=== PATIENT | male | born 1945 | race Caucasian/White ===

== ENCOUNTER 2017-02-08 05:21 | Inpatient (IN) | payer OTHER, MEDICARE ==
[~2017-02-08] VITALS: Ht 170.2 cm; Wt 91.5 kg
[~2017-02-08 05:21] MED LIST: CARDIZEM CD360 MG PO; COUMADIN2.5 MG PO; COUMADIN5 MG PO; IRON325 M1 PO; LOSARTAN POTASS50 MG PO; OMEPRAZOLE20 M2 PO; PERCOCET 5/31 TABLET PO; TIAZAC360 MG PO; TYLENOL REGULA325 MG PO; VISTARIL25 MG PO; WARFARIN SODIUM2 MG PO; WARFARIN SODIUM5 MG PO; WARFARIN SODIUM6 MG PO; ZANTAC75 M1 PO
[2017-02-08 05:42] VITALS: BP 130/90
[2017-02-08 06:17] LABS: HEMATOCRIT 44.1 % (38.0-50.0); MCH 31.3 PG (29.0-34.0); MCHC 34.7 G/DL (30.0-36.0); MCV 90.2 FL (86-99); MEAN PLAT.VOLUME 9.9 uM^3 (9.0-12.4); PLATELET COUNT 256 K/uL (156-360); RBC DIS.WIDTH-CV 12.6 % (11.8-14.6); RBC DIS.WIDTH-SD 41.1 % (39-53); RED BLOOD COUNT 4.89 M/uL (4.00-5.50); WHITE BLOOD COUNT 6.5 K/uL (4.1-10.2)
[2017-02-08 06:26] LABS: PTT 25.5 SEC (25-37)
[2017-02-08 06:28] LABS: CHLORIDE 107 mEq/L (99-109); POTASSIUM 4.2 mEq/L (3.7-5.4); SODIUM 142 mEq/L (136-147)
[2017-02-08 06:29] LABS: GLUCOSE 108 mg/dL (70-99)
[2017-02-08 06:30] LABS: INTER. NORMALIZED RATIO 1.2; PROTHROMBIN TIME 13.3 SEC (10.2-12.9)
[2017-02-08 06:31] LABS: ANION GAP 12 MEQ/L (2-14)
[2017-02-08 06:33] LABS: GFR ESTIMATE (CALCULATED) 53 mL/min/
[2017-02-08 06:34] LABS: UREA NITROGEN (BUN) 17 mg/dL (9-23)
[2017-02-08 12:27] VITALS: BP 113/72
[2017-02-08 15:52] VITALS: BP 122/76
[2017-02-08 19:13] VITALS: BP 112/74
[2017-02-08 23:40] VITALS: BP 122/78
[2017-02-09 03:47] VITALS: BP 137/80
[2017-02-09 05:43] LABS: CHLORIDE 104 mEq/L (99-109); POTASSIUM 4.3 mEq/L (3.7-5.4); SODIUM 140 mEq/L (136-147)
[2017-02-09 05:45] LABS: GLUCOSE 116 mg/dL (70-99)
[2017-02-09 05:46] LABS: ANION GAP 9 MEQ/L (2-14)
[2017-02-09 05:48] LABS: GFR ESTIMATE (CALCULATED) > 59 mL/min/
[2017-02-09 05:49] LABS: UREA NITROGEN (BUN) 14 mg/dL (9-23)
[2017-02-09 05:57] LABS: HEMATOCRIT 38.8 % (38.0-50.0); MCH 31.3 PG (29.0-34.0); MCHC 33.2 G/DL (30.0-36.0); MCV 94.2 FL (86-99); MEAN PLAT.VOLUME 10.2 uM^3 (9.0-12.4); PLATELET COUNT 203 K/uL (156-360); RBC DIS.WIDTH-CV 12.8 % (11.8-14.6); RBC DIS.WIDTH-SD 44.5 % (39-53); RED BLOOD COUNT 4.12 M/uL (4.00-5.50); WHITE BLOOD COUNT 8.7 K/uL (4.1-10.2)
[2017-02-09 07:15] VITALS: BP 130/90
[2017-02-09 11:23] LABS: INTER. NORMALIZED RATIO 1.2; PROTHROMBIN TIME 13.8 SEC (10.2-12.9)
[2017-02-09 11:40] VITALS: BP 128/89
[2017-02-09 16:10] VITALS: BP 122/85
[2017-02-09 19:36] VITALS: BP 140/79
[2017-02-09 23:42] VITALS: BP 123/78
[2017-02-10 03:44] VITALS: BP 139/75
[2017-02-10 07:01] LABS: HEMATOCRIT 36.9 % (38.0-50.0); MCH 32.5 PG (29.0-34.0); MCHC 34.1 G/DL (30.0-36.0); MCV 95.1 FL (86-99); MEAN PLAT.VOLUME 10.4 uM^3 (9.0-12.4); PLATELET COUNT 197 K/uL (156-360); RBC DIS.WIDTH-CV 12.9 % (11.8-14.6); RBC DIS.WIDTH-SD 44.6 % (39-53); RED BLOOD COUNT 3.88 M/uL (4.00-5.50); WHITE BLOOD COUNT 7.9 K/uL (4.1-10.2)
[2017-02-10 07:06] LABS: INTER. NORMALIZED RATIO 1.2; PROTHROMBIN TIME 13.6 SEC (10.2-12.9)
[2017-02-10 07:25] VITALS: BP 130/88
[2017-02-10 07:33] LABS: ANION GAP 6 MEQ/L (2-14); CHLORIDE 101 MEQ/L (99-109); GFR ESTIMATE (CALCULATED) > 59 mL/min/; GLUCOSE 110 mg/dL (70-99); MAGNESIUM 1.8 mg/dl (1.3-2.7); POTASSIUM 4.6 MEQ/L (3.7-5.4); SAMPLE HEMOLYSIS CHECK 0; SAMPLE ICTERIC CHECK 0; SAMPLE LIPEMIA CHECK 0; SODIUM 135 MEQ/L (136-147); UREA NITROGEN (BUN) 7 mg/dL (9-23)
[2017-02-10 16:04] VITALS: BP 132/88
[2017-02-10 23:56] VITALS: BP 146/92
[2017-02-11 07:56] LABS: HEMATOCRIT 40.2 % (38.0-50.0); MCH 31.9 PG (29.0-34.0); MCHC 33.8 G/DL (30.0-36.0); MCV 94.1 FL (86-99); MEAN PLAT.VOLUME 10.1 uM^3 (9.0-12.4); PLATELET COUNT 223 K/uL (156-360); RBC DIS.WIDTH-CV 12.7 % (11.8-14.6); RBC DIS.WIDTH-SD 43.8 % (39-53); RED BLOOD COUNT 4.27 M/uL (4.00-5.50); WHITE BLOOD COUNT 7.1 K/uL (4.1-10.2)
[2017-02-11 08:23] LABS: ANION GAP 7 MEQ/L (2-14); CHLORIDE 105 MEQ/L (99-109); GFR ESTIMATE (CALCULATED) > 59 mL/min/; GLUCOSE 117 mg/dL (70-99); POTASSIUM 4.2 MEQ/L (3.7-5.4); SAMPLE HEMOLYSIS CHECK 0; SAMPLE ICTERIC CHECK 0; SAMPLE LIPEMIA CHECK 0; SODIUM 141 MEQ/L (136-147); UREA NITROGEN (BUN) 8 mg/dL (9-23)
[2017-02-11 09:04] VITALS: BP 133/83
[2017-02-11 09:46] LABS: INTER. NORMALIZED RATIO 1.3; PROTHROMBIN TIME 14.7 SEC (10.2-12.9)
[2017-02-11 15:24] VITALS: BP 139/83
[2017-02-11 23:10] VITALS: BP 138/78
[2017-02-12 07:31] LABS: MCHC 32.9 G/DL (30.0-36.0); MCV 94.3 FL (86-99); MEAN PLAT.VOLUME 9.7 uM^3 (9.0-12.4); PLATELET COUNT 239 K/uL (156-360); RBC DIS.WIDTH-CV 12.5 % (11.8-14.6); RBC DIS.WIDTH-SD 43.6 % (39-53); RED BLOOD COUNT 4.35 M/uL (4.00-5.50); WHITE BLOOD COUNT 7.3 K/uL (4.1-10.2)
[2017-02-12 07:50] LABS: ANION GAP 8 MEQ/L (2-14); CHLORIDE 105 MEQ/L (99-109); GFR ESTIMATE (CALCULATED) > 59 mL/min/; GLUCOSE 120 mg/dL (70-99); POTASSIUM 4.1 MEQ/L (3.7-5.4); SAMPLE HEMOLYSIS CHECK 0; SAMPLE ICTERIC CHECK 0; SAMPLE LIPEMIA CHECK 0; SODIUM 142 MEQ/L (136-147); UREA NITROGEN (BUN) 8 mg/dL (9-23)
[2017-02-12 08:00] VITALS: BP 151/65
[2017-02-12 08:02] LABS: INTER. NORMALIZED RATIO 1.6; PROTHROMBIN TIME 17.5 SEC (10.2-12.9)
[2017-02-12 16:00] VITALS: BP 138/88
[2017-02-12 23:15] VITALS: BP 145/80
[2017-02-13 05:54] LABS: HEMATOCRIT 39.4 % (38.0-50.0); MCH 32.4 PG (29.0-34.0); MCHC 35.5 G/DL (30.0-36.0); MCV 91.2 FL (86-99); MEAN PLAT.VOLUME 9.7 uM^3 (9.0-12.4); PLATELET COUNT 272 K/uL (156-360); RBC DIS.WIDTH-CV 12.4 % (11.8-14.6); RBC DIS.WIDTH-SD 41.7 % (39-53); RED BLOOD COUNT 4.32 M/uL (4.00-5.50); WHITE BLOOD COUNT 9.1 K/uL (4.1-10.2)
[2017-02-13 06:21] LABS: ANION GAP 9 MEQ/L (2-14); CHLORIDE 104 MEQ/L (99-109); GFR ESTIMATE (CALCULATED) > 59 mL/min/; GLUCOSE 108 mg/dL (70-99); POTASSIUM 3.6 MEQ/L (3.7-5.4); SAMPLE HEMOLYSIS CHECK 0; SAMPLE ICTERIC CHECK 0; SAMPLE LIPEMIA CHECK 0; SODIUM 140 MEQ/L (136-147); UREA NITROGEN (BUN) 10 mg/dL (9-23)
[2017-02-13 06:24] LABS: INTER. NORMALIZED RATIO 1.8; PROTHROMBIN TIME 20.2 SEC (10.2-12.9)
[2017-02-13 07:55] VITALS: BP 136/82
[2017-02-13] MEDS ORDERED: HYDROCODON-ACE1 EAC7 PO (09:49)
== END 2017-02-13 16:03 | disposition home or self-care (01) | DRG 331 ==
LOC: SDC 05:21 → 2EAST 10:46 → 2SOUTH 10:46 → ENRESERV 10:48 → 2EAST 12:18 → SDC 15:05 → 2EAST 02-13 16:03
PROVIDERS: Physician Assistant; Surgery
PROC: 3E00XMZ Introduction of Pigment into Skin and Mucous Membranes, External Approach (ICD-10-PCS; principal; 2017-02-08)
PROC: 0DBN0ZZ Excision of Sigmoid Colon, Open Approach (ICD-10-PCS; principal; 2017-02-08)
DX: D12.5 Benign neoplasm of sigmoid colon (principal); M19.90 Unspecified osteoarthritis, unspecified site; I48.91 Unspecified atrial fibrillation; I25.10 Atherosclerotic heart disease of native coronary artery without angina pectoris; K21.9 Gastro-esophageal reflux disease without esophagitis; I10 Essential (primary) hypertension; D37.4 Neoplasm of uncertain behavior of colon; N20.0 Calculus of kidney; K40.90 Unilateral inguinal hernia, without obstruction or gangrene, not specified as recurrent; K44.9 Diaphragmatic hernia without obstruction or gangrene; Z80.0 Family history of malignant neoplasm of digestive organs; Z79.01 Long term (current) use of anticoagulants; Z96.649 Presence of unspecified artificial hip joint; Z96.659 Presence of unspecified artificial knee joint
CPT/HCPCS: 80048; 83735; 84100; 85027; 85610; 85730; 86850; 86900; 86901; 86920; 88307; 93005; 94799; J0131; J1170; J1335; J1650; J2250; J2405; J2710; J3010; J3480; J7050; J7120